=== PATIENT | male | born 1980 | race Caucasian/White ===

== ENCOUNTER → 2016-09-07 | Outpatient (CLI) | payer OTHER ==
[2016-09-07 16:16] LABS: ALANINE AMINOTRANSFERASE 71 U/L (21-72); ALKALINE PHOSPHATASE 77 U/L (38-126); ASPARTATE AMINO TRANSFERASE 43 U/L (17-59); BILIRUBIN,DIRECT 0.3 mg/dL (0.0-0.4); BILIRUBIN,TOTAL 0.7 mg/dL (0.2-1.3)
[2016-09-07 16:35] LABS: ANION GAP 11 (5-19); BLOOD UREA NITROGEN 9 mg/dL (7-20); CALCIUM 9.4 mg/dL (8.4-10.2); CARBON DIOXIDE 25 mmol/L (22-30); CHLORIDE 106 mmol/L (98-107); CREATININE RESULT 0.85 mg/dL (0.52-1.25); GLUCOSE 85 mg/dL (75-110); SODIUM 141.8 mmol/L (137-145)
[2016-09-07 16:48] LABS: ALBUMIN 4.9 g/dL (3.5-5.0); TOTAL PROTEIN 7.6 g/dL (6.3-8.2)
== END ==
LOC: LAB 15:38
PROVIDERS: ATTEND Physician Assistant
DX: R53.83 Other fatigue (principal)
CPT/HCPCS: 36415; 80053; 84443